=== PATIENT | female | born 1990 | race Caucasian/White ===

== ENCOUNTER 2020-02-03 10:58 | Inpatient (IN) | payer OTHER ==
[2020-02-03] MEDS ORDERED: Buffered Lidocaine 1% SYRIN 1 ml INTRADERM ONE (11:48)
[2020-02-03] MEDS ORDERED: Lactated Ringers 1000 ml BAG 1,000 ML IV ONE (11:48)
[2020-02-03] MEDS ORDERED: Lactated Ringers 1000 ml BAG 1,000 ML IV SCH ×2 (12:00→20:00)
[2020-02-03 13:49] LABS: Urine Benzodiazepine Screen None Detected (None Detect); Urine Opiates Screen None Detected (None Detect)
[2020-02-03] MEDS ORDERED: Oxytocin in LR 20 UNITS/1,000 ML BAG IVPB ONE (14:26)
[2020-02-03 15:10] LABS: ABS Basophils 0.1 10^3/ul (0-0.2); ABS Lymphocytes 0.8 10^3/ul (1.0-4.8); ABS Monocytes 0.4 10^3/ul (0-0.8); Eosinophil % 0.1 %; Hematocrit 40 % (35-47); Hemoglobin 13.8 g/dL (12.0-16.0); Lymphocyte % 4.6 %; Mean Corpuscular HGB Conc 34 g/dL (31-36); Mean Corpuscular Hemoglobin 30 pg (27-31); Mean Corpuscular Volume 87 fL (80-97); Mean Platelet Volume 9.5 fL (7.4-10.4); Platelet Count 225 10^3/uL (150-450); Red Cell Distribution Width 13 % (10-15); White Blood Count 17.3 10^3/uL (3.5-10.8)
[2020-02-03] MEDS ORDERED: Lidocaine 1% VIAL 10 MG/ML VIAL ONE (18:58)
[2020-02-03] MEDS ORDERED: Dibucaine 1% OINT 28.35 GM TUBE PR PRN (19:10)
[2020-02-03] MEDS ORDERED: Witch Hazel PAD JAR TOPICAL PRN (19:10)
[2020-02-03] MEDS ORDERED: Oxytocin in LR 20 UNITS/1,000 ML BAG IVPB SCH (20:00)
[2020-02-03 21:53] VITALS: BP 137/81
[2020-02-05 02:27] LABS: ABS Lymphocytes 1.9 10^3/ul (1.0-4.8); Eosinophil % 0.2 %; Hematocrit 34 % (35-47); Hemoglobin 11.8 g/dL (12.0-16.0); Lymphocyte % 11.6 %; Mean Corpuscular HGB Conc 35 g/dL (31-36); Mean Corpuscular Hemoglobin 30 pg (27-31); Mean Corpuscular Volume 87 fL (80-97); Mean Platelet Volume 9.8 fL (7.4-10.4); Platelet Count 186 10^3/uL (150-450); Red Blood Count 3.91 10^6 /uL (3.70-4.87); Red Cell Distribution Width 13 % (10-15); White Blood Count 16.2 10^3/uL (3.5-10.8)
== END 2020-02-04 19:05 | disposition home or self-care (01) | DRG 807 ==
LOC: MCHOBOUT 10:58 → MCHOB 11:57
PROVIDERS: ADMIT Advanced Practice Midwife; ATTEND Advanced Practice Midwife

== ENCOUNTER 2024-03-07 14:01 | Observation (INO) ==
[2024-03-07] MEDS: NS 0.9% 1000 ml BAG 1,000 ML IV ONE (15:19)
[2024-03-07] MEDS: Ondansetron 4 mg VIAL 2 MG/ML 2 ml VIAL IV ONE (16:45)
[2024-03-07] MEDS: Acetaminophen IV 1 GM/100ML 1,000 MG/100 ML BAG IV ONE (18:46)
[2024-03-07] MEDS ORDERED: Midazolam 2 mg/2 ml VIAL 1 mg/ml 2 ml VIAL (2 mg) ONE (19:18)
[2024-03-07] MEDS ORDERED: fentaNYL 250 mcg/5 ml 50 MCG/ML 5 ml VIAL (250 MCG) ONE (19:18)
[2024-03-07] MEDS ORDERED: Rocuronium 50 mg VIAL 10 mg/ml 5 ml VIAL (50 mg) ONE ×2 (19:18→20:43)
[2024-03-07] MEDS ORDERED: Dexamethasone IV 4 MG/ML VIAL 1 ml VIAL ONE (19:19)
[2024-03-07] MEDS ORDERED: Lidocaine 2% PF 5 ML VIAL ONE (19:19)
[2024-03-07] MEDS ORDERED: Propofol 10 MG/ML 20 ML BTL ONE ×2 (19:19→20:55)
[2024-03-07] MEDS ORDERED: Ondansetron 4 mg VIAL 2 MG/ML 2 ml VIAL ONE (19:19)
[2024-03-07] MEDS ORDERED: Bupivacaine 0.25% EPI 200,000 30 ML SDV ONE (19:32)
[2024-03-07] MEDS: Piperacillin/Tazobac 3.375 BAG 3.375 GM/100 ML BAG IV ONE (19:36)
[2024-03-07] MEDS ORDERED: HYDROmorphone 1 MG/1 ML SYRINGE IV PRN (19:48)
[2024-03-07] MEDS ORDERED: fentaNYL 100 mcg/2 ml 50 MCG/ML VIAL IV PRN (19:48)
[2024-03-07] MEDS ORDERED: Naloxone 0.4 mg VIAL 0.4 mg/ml 1 ml VIAL IV PRN (19:48)
[2024-03-07] MEDS ORDERED: Acetaminophen IV 1 GM/100ML 1,000 MG/100 ML BAG IV PRN (19:48)
[2024-03-07] MEDS ORDERED: Ondansetron 4 mg VIAL 2 MG/ML 2 ml VIAL IV PRN ×2 (19:48→21:22)
[2024-03-07] MEDS ORDERED: Phenylephrine 40 mcg/mL 10mL (400mcg) SYRINGE ONE (20:36)
[2024-03-07] MEDS ORDERED: oxyCODONE/Acetamin 5/325 mg TAB PO PRN (21:22)
[2024-03-07] MEDS: NS 0.9% 1000 ml BAG 1,000 ML IV SCH ×2 (22:30→22:39)
[2024-03-08] MEDS: Piperacillin/Tazobac 3.375 BAG 3.375 GM/100 ML BAG IV SCH (01:55)
[2024-03-08] MEDS ORDERED: Piperacillin/Tazobac 3.375 BAG 3.375 GM/100 ML BAG IV SCH (02:00)
[2024-03-08] MEDS ORDERED: oxyCODONE/Acetamin 5/325 mg TAB PO PRN (08:26)
[2024-03-08 10:24] VITALS: BP 104/68
== END 2024-03-08 10:55 | disposition home or self-care (01) ==
LOC: ED 14:01 → SDS 19:38 → SSU 19:38
PROVIDERS: ADMIT Surgery; ATTEND Surgery